=== PATIENT | male | born 1970 | race Caucasian/White ===

== ENCOUNTER 2025-01-28 04:51 | Emergency (ER) | payer BC ==
[~2025-01-28] VITALS: Ht 172.7 cm; Wt 77.0 kg
[2025-01-28 04:53] VITALS: TEMP 37.1; O2SAT 95
[2025-01-28 05:10] VITALS: BP 126/79; PULSE 88; RESP 12; O2SAT 97
[2025-01-28 05:26] LABS: BASOPHILS % 1.1 % (0.0-2.0); EOSINOPHILS % 2.1 % (0.0-5.0); HEMATOCRIT. 42.7 % (42.0-52.0); HEMOGLOBIN. 14.4 g/dL (14.0-18.0); LYMPHOCYTES % 50.1 % (20.0-50.0); MEAN PLATELET VOLUME 9.0 fl (7.4-10.4); MONOCYTES % 8.4 % (2.0-8.0); NEUTROPHILS % 38.3 % (40.0-76.0); PLATELET 150 x1000/uL (130-400); RED BLOOD CELL COUNT 4.80 mill/uL (4.7-6.1); RED CELL DISTRIBUTION WIDTH 13.2 % (11.6-14.6)
[2025-01-28 05:41] LABS: CREATININE 1.1 mg/dL (0.6-1.3); UREA NITROGEN BLOOD 19 mg/dL (9-23)
[2025-01-28 05:43] LABS: ASPARTATE AMINOTRANSFERASE 16 IU/L (<34); BILIRUBIN TOTAL 1.1 mg/dL (0.1-1.0); PROTEIN TOTAL 6.6 g/dL (6.0-8.3)
== END 2025-01-28 05:58 | disposition home or self-care (01) ==
LOC: ER 05:00
DX: R56.9 Unspecified convulsions (principal)
CPT/HCPCS: 80053; 85025; 36415; 80339; 93005; 99284; Z7610; A4606